=== PATIENT | female | born 1985 | race African-American/Black ===

== ENCOUNTER 2020-09-29 08:58 | Emergency (ER) | payer OTHER ==
[~2020-09-29] VITALS: Ht 172.7 cm; Wt 88.5 kg
[2020-09-29] MEDS ORDERED: CYCLOBENZAPRINE5 MG PO (11:02)
[2020-09-29] MEDS ORDERED: NAPROSYN500 MG PO (11:02)
[2020-09-29 12:32] LABS: BASOPHILS # (AUTO) 0.1 (0.0-0.1); BASOPHILS % 0.8 % (0.0-1.0); EOSINOPHILS # (AUTO) 0.1 (0.0-0.4); EOSINOPHILS % 0.8 % (0.0-6.0); HEMATOCRIT 36.6 % (34.2-44.1); LYMPHOCYTES # (AUTO) 2.9 (1.0-3.2); LYMPHOCYTES % 34.1 % (18.0-39.1); MEAN CORPUSCULAR HEMOGLOBIN 27.7 pg (28-32); MEAN CORPUSCULAR HGB CONC 32.8 g/dL (31-35); MEAN CORPUSCULAR VOLUME 84.5 fL (81-99); MONOCYTES # (AUTO) 0.7 (0.2-0.8); MONOCYTES % 8.6 % (4.4-11.3); NEUTROPHILS # (AUTO) 4.8 (2.1-6.9); NEUTROPHILS % 55.5 % (38.7-80.0); PLATELET COUNT 289 x10e3/uL (140-360); RED BLOOD COUNT 4.33 x10e6/uL (3.6-5.1); RED CELL DISTRIBUTION WIDTH 13.2 % (11.7-14.4)
== END 2020-09-29 11:31 | disposition home or self-care (01) ==
LOC: FSED 09:26
DX: R07.89 Other chest pain (principal); I10 Essential (primary) hypertension; F41.9 Anxiety disorder, unspecified; F17.210 Nicotine dependence, cigarettes, uncomplicated
CPT/HCPCS: 36415; 71045; 80048; 80053; 81003; 81025; 82553; 84484; 85025; 85379; 93005; 99284